=== PATIENT | female | born 1950 | race Caucasian/White ===

== ENCOUNTER 2018-03-12 15:28 | Outpatient (CLI) | payer MEDICARE | END 2018-03-12 15:29 | disposition home or self-care (01) | LOC: BICMAMMO 15:28 | PROVIDERS: ATTEND Family Medicine | DX: Z12.31 Encounter for screening mammogram for malignant neoplasm of breast (principal); Z80.3 Family history of malignant neoplasm of breast | CPT/HCPCS: 77063; 77067 ==

== ENCOUNTER 2018-07-02 14:49 | Outpatient (CLI) | payer MEDICARE ==
--- NOTE | 2018-07-02 15:35 | RAD ---
RIGHT SHOULDER THREE VIEWS: Indication: Diffuse right shoulder pain. Comparison: None. FINDINGS: There is advanced osteoarthrosis of the glenohumeral and AC joint. Visualized right ulna is clear. IMPRESSION: Glenohumeral AC joint osteoarthrosis. No acute osseous abnormality. POS: [facility]
== END 2018-07-02 14:50 | disposition home or self-care (01) ==
LOC: BICRAD 14:49
PROVIDERS: ATTEND Family Medicine
DX: G89.29 Other chronic pain (principal); M19.011 Primary osteoarthritis, right shoulder

== ENCOUNTER 2018-08-26 00:19 | Emergency (ER) | payer MEDICARE ==
[2018-08-26 01:15] LABS: #Eosinphils 0.2 thou/uL (0.0-0.7); #Monocytes 0.9 thou/uL (0.11-0.59); #Neutrophils 6.1 thou/uL (1.40-6.50); %Basophils 0.3 % (0.0-1.0); %Eosinophils 1.6 % (0.0-10.0); %Lymphocytes 29.4 % (21.0-51.0); %Monocytes 8.6 % (0.0-10.0); %Neutrophils 60.2 % (42.0-75.0); Hemoglobin 13.3 g/dL (12.0-16.0); Mean Corpuscular HGB CONC 33.6 g/dL (32.0-36.0); Mean Corpuscular Hemoglobin 32.4 pg (27.0-31.0); Mean Corpuscular Volume 96.5 fL (78.0-98.0); Platelet Count 196 thou/uL (130-400); RBC Distribution Width 12.7 % (11.5-14.5); Red Blood Cell (RBC) Count 4.11 mill/uL (4.20-5.40); White Blood Cell (WBC) Count 10.1 thou/uL (4.8-10.8)
[2018-08-26 01:37] LABS: ALT (SGPT) 37 U/L (8-55); AST (SGOT) 25 U/L (5-34); Albumin 4.4 g/dL (3.4-4.8); Alkaline Phosphatase 71 U/L (40-150); Anion Gap 14 mmol/L (10-20); BUN (Urea Nitrogen) 19 mg/dL (9.8-20.1); Bilirubin, Total 0.3 mg/dL (0.2-1.2); Calc. Creatinine Clearance 0 mL/min (70-130); Calcium 10.1 mg/dL (7.8-10.44); Carbon Dioxide 28 mmol/L (23-31); Chloride 103 mmol/L (98-107); Estimated GFR-MDRD 51; Globulin 3.9 g/dL (2.4-3.5); Glucose 114 mg/dL (80-115); Potassium 4.2 mmol/L (3.5-5.1); Protein, Total 8.3 g/dL (6.0-8.3); Sodium 141 mmol/L (136-145)
--- NOTE | 2018-08-26 08:08 | CT ---
PRELIMINARY REPORT/[facility]/EMERGENTY AFTER-HOURS PROCEDURE CT Head Without Contrast EXAM DATE/TIME: 08/26/2018 12:48 AM CLINICAL HISTORY: 67 years old, female; Signs and symptoms; Weakness, extremity; Left; Patient HX: Er wr; Tingling sens ation in left arm TECHNIQUE: Axial computed tomography images of the head/brain without contrast. COMPARISON: No relevant prior studies available. FINDINGS: Brain: Normal. Ventricles: Normal. Bones/joints: Normal. Sinuses: Normal as visualized. Mastoid air cells: Normal as visualized. Soft tissues: Unremarkable. IMPRESSION: No acute intracranial abnormality. Thank you for allowing us to participate in the care of your patient. Dictated and Authenticated by: Arie Hdez MD 08/26/2018 2:11 AM Central Time ([place] & [place]) FINAL REPORT EMERGENT AFTER HOURS CT BRAIN WITHOUT CONTRAST: FINDINGS/IMPRESSION: I agree with the findings and impression given in the preliminary report, per the [facility] physician. No evidence of acute intracranial abnormality.
== END 2018-08-26 03:08 | disposition home or self-care (01) ==
LOC: ERS 00:19
DX: M54.12 Radiculopathy, cervical region (principal); E78.5 Hyperlipidemia, unspecified; I10 Essential (primary) hypertension; Z86.73 Personal history of transient ischemic attack (TIA), and cerebral infarction without residual deficits; F32.9 Major depressive disorder, single episode, unspecified; Z79.899 Other long term (current) drug therapy
CPT/HCPCS: 36415; 70450; 80053; 85025

== ENCOUNTER 2019-03-15 09:35 | Outpatient (CLI) | payer MEDICARE ==
--- NOTE | 2019-03-15 11:11 | BD ---
BONE DENSITOMETRY: PROVIDED CLINICAL HISTORY: Postmenopausal screening. FINDINGS: Lumbar Spine: BMD (g/cm2) L1 0.993 T-Score: 0.0 L2 0.875 T-Score: -1.4 L3 0.999 T-Score: -0.8 L4 1.279 T-Score: 2.0 L1-L4 1.043 T-Score: 0.0 Femoral Neck: 0.703 T-Score: -1.3 Total Femur: 0.904 T-Score: -0.3 10-YEAR FRACTURE RISK:: Major osteoporotic fracture: 8.6%. Hip fracture: 0.8%. IMPRESSION: Calculated bone mineral density meets WHO criteria for osteopenia in the left femoral neck, placing t he patient at increased risk for fracture. Transcribed Date/Time: 03/15/2019 12:45 PM
--- NOTE | 2019-03-15 11:27 | MMO ---
Bilateral MAMMO Bilat Screen [facility]. CLINICAL HISTORY: Patient is 68 years old and is seen for screening. The patient has the following family history of breast cancer: sister. The patient has a history of Skin cancer. VIEWS: The views performed were: bilateral craniocaudal with tomosynthesis and bilateral mediolateral oblique with tomosynthesis. FILMS COMPARED: The present examination has been compared to prior imaging studies performed at [facility] on 11/22/2015, 01/28/2017 and 03/12/2018. This study has been interpreted with the assistance of computer-aided detection. MAMMOGRAM FINDINGS: There are scattered fibroglandular densities. There are no suspicious masses, suspicious calcifications, or new areas of architectural distortion. IMPRESSION: THERE IS NO MAMMOGRAPHIC EVIDENCE OF MALIGNANCY. A ROUTINE FOLLOW-UP MAMMOGRAM IN 1 YEAR IS RECOMMENDED. THE RESULTS OF THIS EXAM WERE SENT TO THE PATIENT. ACR BI-RADS Category 1 - Negative MAMMOGRAPHY NOTE: 1. A negative mammogram report should not delay a biopsy if a dominant of clinically suspicious mass is present. 2. Approximately 10% to 15% of breast cancers are not detected by mammography. 3. Adenosis and dense breasts may obscure an underlying neoplasm. Reported by: REMY BANERJEE MD Electonically Signed: [id number]
== END 2019-03-15 09:36 | disposition home or self-care (01) ==
LOC: BICMAMMO 09:35
PROVIDERS: ATTEND Family Medicine
DX: Z12.31 Encounter for screening mammogram for malignant neoplasm of breast (principal); Z78.0 Asymptomatic menopausal state; Z80.3 Family history of malignant neoplasm of breast; M85.852 Other specified disorders of bone density and structure, left thigh
CPT/HCPCS: 77063; 77067; 77080

== ENCOUNTER 2020-03-17 08:45 | Outpatient (CLI) | payer MEDICARE ==
--- NOTE | 2020-03-17 09:25 | MMO ---
Bilateral MAMMO Bilat Screen [facility]. CLINICAL HISTORY: Patient is 69 years old and is seen for screening. The patient has the following family history of breast cancer: sister. The patient has a history of Skin cancer. VIEWS: The views performed were: bilateral craniocaudal with tomosynthesis and bilateral mediolateral oblique with tomosynthesis. FILMS COMPARED: The present examination has been compared to prior imaging studies performed at [facility] on 11/22/2015, 01/28/2017, 03/12/2018 and 03/15/2019. This study has been interpreted with the assistance of computer-aided detection. MAMMOGRAM FINDINGS: There are scattered fibroglandular densities. There are benign appearing calcifications seen in both breasts. There are benign scattered densities in both breasts. There are no suspicious masses, suspicious calcifications, or new areas of architectural distortion. IMPRESSION: THERE IS NO MAMMOGRAPHIC EVIDENCE OF MALIGNANCY. A ROUTINE FOLLOW-UP MAMMOGRAM IN 1 YEAR IS RECOMMENDED. THE RESULTS OF THIS EXAM WERE SENT TO THE PATIENT. ACR BI-RADS Category 2 - Benign finding MAMMOGRAPHY NOTE: 1. A negative mammogram report should not delay a biopsy if a dominant of clinically suspicious mass is present. 2. Approximately 10% to 15% of breast cancers are not detected by mammography. 3. Adenosis and dense breasts may obscure an underlying neoplasm. Reported by: REMY BANERJEE MD Electonically Signed: [id number]
== END 2020-03-17 08:46 | disposition home or self-care (01) ==
LOC: BICMAMMO 08:45
PROVIDERS: ATTEND Family Medicine
DX: Z12.31 Encounter for screening mammogram for malignant neoplasm of breast (principal); Z80.3 Family history of malignant neoplasm of breast; Z85.828 Personal history of other malignant neoplasm of skin
CPT/HCPCS: 77063; 77067

== ENCOUNTER 2021-03-22 14:40 | Outpatient (CLI) | payer MEDICARE | END 2021-03-22 14:41 | disposition home or self-care (01) | LOC: BICMAMMO 14:40 | PROVIDERS: ATTEND Family Medicine | DX: Z12.31 Encounter for screening mammogram for malignant neoplasm of breast (principal); Z80.3 Family history of malignant neoplasm of breast; Z85.828 Personal history of other malignant neoplasm of skin | CPT/HCPCS: 77063; 77067 ==

== ENCOUNTER 2021-08-13 11:18 | Outpatient (CLI) | payer MEDICARE ==
[2021-08-13 13:06] LABS: Hemoglobin 12.9 g/dL (12.0-15.5); Mean Corpuscular HGB CONC 32.8 g/dL (32.0-36.0); Mean Corpuscular Hemoglobin 32.3 pg (27.0-33.0); Mean Corpuscular Volume 98.3 fl (81.6-98.3); Mean Platelet Volume 10.7 fl (7.4-10.4); Platelet Count 168 10x3/uL (150-450); White Blood Cell (WBC) Count 8.7 10x3/uL (3.5-10.5)
[2021-08-13 13:36] LABS: Anion Gap 17 mmol/L (10-20); BUN (Urea Nitrogen) 16 mg/dL (9.8-20.1); Calc. Creatinine Clearance 0 mL/min (70-130); Calcium 9.6 mg/dL (7.8-10.44); Carbon Dioxide 25 mmol/L (23-31); Chloride 109 mmol/L (98-107); Glucose 117 mg/dL (80-115); Potassium 4.4 mmol/L (3.5-5.1); Sodium 147 mmol/L (136-145)
[2021-08-13 23:37] LABS: SARS-CoV-2 PCR by NAA Not Detected (NotDetected)
== END 2021-08-13 11:19 | disposition home or self-care (01) ==
LOC: LABBT 11:18
PROVIDERS: ATTEND Specialist
DX: Z01.818 Encounter for other preprocedural examination (principal); L98.9 Disorder of the skin and subcutaneous tissue, unspecified; Z20.822 Contact with and (suspected) exposure to COVID-19
CPT/HCPCS: 80048; 85027; 93005; U0003; U0005; 93010

== ENCOUNTER 2023-07-30 14:11 | Outpatient (CLI) | payer MEDICARE, OTHER | END 2023-07-30 14:12 | disposition home or self-care (01) | LOC: BICMAMMO 14:11 | PROVIDERS: ATTEND Family Medicine | DX: Z12.31 Encounter for screening mammogram for malignant neoplasm of breast (principal); Z13.820 Encounter for screening for osteoporosis; M85.852 Other specified disorders of bone density and structure, left thigh; Z78.0 Asymptomatic menopausal state; Z80.3 Family history of malignant neoplasm of breast; Z85.828 Personal history of other malignant neoplasm of skin | CPT/HCPCS: 77063; 77067; 77080 ==

== ENCOUNTER 2023-08-02 20:44 | Inpatient (IN) | payer OTHER ==
[~2023-08-02 20:44] MED LIST: Iopamidol-370 76% 500 ML MDV (1 ML CHARGE) ONE
[2023-08-02] MEDS ORDERED: Metoclopramide HCl 10 MG (2 mL) VIAL ONE (21:44)
[2023-08-02] MEDS ORDERED: diphenhydrAMINE 50 MG/ML VIAL ONE (22:05)
[2023-08-02] MEDS ORDERED: methylPREDNISolone Sod Succ 40 MG VIAL ONE (22:05)
[2023-08-02] MEDS ORDERED: Famotidine/PF 20 mg/2ml Vial ONE (22:05)
[2023-08-02 22:12] LABS: #Eosinphils 0.1 thou/uL (0.0-0.7); #Monocytes 0.6 thou/uL (0.11-0.59); %Basophils 0.5 % (0.0-1.0); %Eosinophils 2.2 % (0.0-10.0); %Lymphocytes 39.3 % (21.0-51.0); %Monocytes 9.6 % (0.0-10.0); %Neutrophils 48.1 % (42.0-75.0); Hematocrit 37.6 % (36.0-47.0); Hemoglobin 12.9 g/dL (12.0-16.0); Mean Corpuscular HGB CONC 34.3 g/dL (32.0-36.0); Mean Corpuscular Hemoglobin 33.1 pg (27.0-31.0); Mean Corpuscular Volume 96.4 fl (78.0-98.0); Mean Platelet Volume 10.3 fL (7.4-10.4); Platelet Count 166 10x3/uL (130-400); RBC Distribution Width 13.1 % (11.5-14.5); White Blood Cell (WBC) Count 6.2 10x3/uL (4.8-10.8)
[2023-08-02 22:29] LABS: ALT (SGPT) 21 U/L (8-55); AST (SGOT) 23 U/L (5-34); Albumin 4.4 g/dL (3.4-4.8); Alkaline Phosphatase 62 U/L (40-110); Anion Gap 13 mmol/L (10-20); BUN (Urea Nitrogen) 12 mg/dL (9.8-20.1); Bilirubin, Total 0.5 mg/dL (0.2-1.2); Calc. Creatinine Clearance 0 mL/min (70-130); Calcium 9.6 mg/dL (7.8-10.44); Carbon Dioxide 25 mmol/L (23-31); Chloride 108 mmol/L (98-107); Estimated GFR 87; Globulin 3.1 g/dL (2.4-3.5); Glucose 102 mg/dL (80-115); Potassium 3.8 mmol/L (3.5-5.1); Protein, Total 7.5 g/dL (5.8-8.1); Sodium 142 mmol/L (136-145)
[2023-08-02] MEDS ORDERED: Magnesium 2 GM/50 ML BAG (IN WATER) ONE (22:50)
[2023-08-02] MEDS ORDERED: niCARdipine 25 MG/10 ML SDV ONE (23:12)
[2023-08-03] MEDS ORDERED: Ondansetron ODT 4 MG TAB PO PRN (01:02)
[2023-08-03] MEDS ORDERED: Ondansetron PF 4 MG/2 ML Vial IVP PRN (01:02)
[2023-08-03] MEDS ORDERED: niCARdipine 25 MG in Sodium Chloride 0.9% 250 ML 250 ML IVPB SCH (01:15)
[2023-08-03] MEDS ORDERED: Acetaminophen 500 MG TAB ONE (02:06)
[2023-08-03] MEDS: Valproate Sodium 1,000 MG in Sodium Chloride 0.9% 100 ML IVPB SCH (02:23)
[2023-08-03 05:13] LABS: Anion Gap 19 mmol/L (10-20); BUN (Urea Nitrogen) 11 mg/dL (9.8-20.1); Calc. Creatinine Clearance 78 mL/min (70-130); Carbon Dioxide 17 mmol/L (23-31); Chloride 107 mmol/L (98-107); Estimated GFR 80; Glucose 184 mg/dL (80-115); Potassium 3.9 mmol/L (3.5-5.1); Sodium 139 mmol/L (136-145)
[2023-08-03 05:19] LABS: Troponin I 0.021 ng/mL (< 0.028)
[2023-08-03 05:27] LABS: #Monocytes 0.1 thou/uL (0.11-0.59); #Neutrophils 4.8 thou/uL (1.40-6.50); %Basophils 0.3 % (0.0-1.0); %Eosinophils 0.2 % (0.0-10.0); %Lymphocytes 19.4 % (21.0-51.0); %Neutrophils 77.4 % (42.0-75.0); Hematocrit 42.5 % (36.0-47.0); Hemoglobin 14.5 g/dL (12.0-16.0); Mean Corpuscular HGB CONC 34.1 g/dL (32.0-36.0); Mean Corpuscular Hemoglobin 32.6 pg (27.0-31.0); Mean Corpuscular Volume 95.5 fl (78.0-98.0); Mean Platelet Volume 10.2 fL (7.4-10.4); Platelet Count 156 10x3/uL (130-400); Red Blood Cell (RBC) Count 4.45 mill/uL (4.20-5.40); White Blood Cell (WBC) Count 6.1 10x3/uL (4.8-10.8)
[2023-08-03] MEDS: chlorproMAZINE HCl 50 MG/2 ML AMP SLOW IVP SCH (05:59)
[2023-08-03] MEDS: rOPINIRole HCl 1 MG TAB PO SCH ×2 (07:02→20:15)
[2023-08-03] MEDS ORDERED: LORazepam 2 MG/ML SYR.(CARPUJECT) ONE ×2 (08:16→09:20)
[2023-08-03] MEDS: LORazepam 2 MG/ML SYR.(CARPUJECT) IVP SCH ×2 (08:30→09:30)
[2023-08-03] MEDS: Lorazepam 2 MG/ML VIAL SLOW IVP SCH (08:30)
[2023-08-03] MEDS ORDERED: Amlodipine 5 MG TAB ONE (09:18)
[2023-08-03] MEDS ORDERED: Lisinopril 20 MG TAB ONE (09:19)
[2023-08-03] MEDS ORDERED: Morphine 4 MG/ML VIAL ONE (09:19)
[2023-08-03] MEDS ORDERED: Clopidogrel Bisulfate 75 MG TAB ONE (09:19)
[2023-08-03] MEDS ORDERED: Famotidine 20 MG TAB ONE (09:20)
[2023-08-03] MEDS: Morphine 2 MG/ML VIAL SLOW IVP SCH (09:30)
[2023-08-03] MEDS: Famotidine/PF 20 mg/2ml Vial SLOW IVP SCH (09:35)
[2023-08-03] MEDS: Lisinopril 20 MG TAB PO SCH (09:35)
[2023-08-03] MEDS: Clopidogrel Bisulfate 75 MG TAB PO SCH (09:35)
[2023-08-03] MEDS: Amlodipine 5 MG TAB PO SCH ×2 (09:35→20:14)
[2023-08-03] MEDS: Citalopram 20 MG TAB PO SCH (09:35)
[2023-08-03] MEDS: Famotidine 20 MG TAB PO SCH (09:35)
[2023-08-03] MEDS: Hydrochlorothiazide 25 MG TAB PO SCH (11:11)
[2023-08-03] MEDS: Rosuvastatin 20 MG TAB PO SCH (11:11)
[2023-08-03 13:16] LABS: Troponin I 0.025 ng/mL (< 0.028)
[2023-08-03 13:57] LABS: Troponin I 0.032 ng/mL (< 0.028)
[2023-08-04 14:06] LABS: Free T4 (Free Thyroxine) 0.94 ng/dL (0.70-1.48); Thyroid Stimulating Hormone 0.5127 uIU/mL (0.35-4.94)
[2023-08-04] MEDS: hydrALAZINE 20 MG/ML VIAL SLOW IVP PRN (17:43)
[2023-08-04] MEDS: Acetaminophen 325 MG TAB PO PRN (19:24)
[2023-08-05 06:00] VITALS: BMI 26.1
[2023-08-05 06:25] LABS: #Eosinphils 0.1 thou/uL (0.0-0.7); #Monocytes 0.5 thou/uL (0.11-0.59); #Neutrophils 5.1 thou/uL (1.40-6.50); %Basophils 0.5 % (0.0-1.0); %Eosinophils 1.4 % (0.0-10.0); %Lymphocytes 32.8 % (21.0-51.0); %Monocytes 6.2 % (0.0-10.0); Hematocrit 43.3 % (36.0-47.0); Hemoglobin 14.4 g/dL (12.0-16.0); Mean Corpuscular HGB CONC 33.3 g/dL (32.0-36.0); Mean Corpuscular Volume 99.3 fl (78.0-98.0); Mean Platelet Volume 9.9 fL (7.4-10.4); Platelet Count 228 10x3/uL (130-400); RBC Distribution Width 13.4 % (11.5-14.5); Red Blood Cell (RBC) Count 4.36 mill/uL (4.20-5.40); White Blood Cell (WBC) Count 8.6 10x3/uL (4.8-10.8)
[2023-08-05 06:51] LABS: Anion Gap 12 mmol/L (10-20); BUN (Urea Nitrogen) 14 mg/dL (9.8-20.1); Calc. Creatinine Clearance 74 mL/min (70-130); Calcium 9.9 mg/dL (7.8-10.44); Carbon Dioxide 28 mmol/L (23-31); Chloride 106 mmol/L (98-107); Estimated GFR 77; Glucose 128 mg/dL (80-115); Potassium 4.9 mmol/L (3.5-5.1); Sodium 141 mmol/L (136-145)
[2023-08-05] MEDS: Carvedilol 6.25 MG TAB PO SCH (10:01)
[2023-08-05 12:18] VITALS: BP 176/73; TEMP 98.3
[2023-08-05] MEDS ORDERED: Carvedilol 6.25 MG TAB PO SCH (17:00)
== END 2023-08-05 17:36 | disposition home or self-care (01) | DRG 281 ==
LOC: ERS 20:44 → ERHOLD 08-03 02:01 → 2SW 08-03 13:57
PROVIDERS: ADMIT Student in an Organized Health Care Education/Training Program; ATTEND Internal Medicine
DX: I16.1 Hypertensive emergency (principal); I21.A1 Myocardial infarction type 2; E87.1 Hypo-osmolality and hyponatremia; E78.5 Hyperlipidemia, unspecified; G25.81 Restless legs syndrome; E04.1 Nontoxic single thyroid nodule; Z79.02 Long term (current) use of antithrombotics/antiplatelets; Z79.891 Long term (current) use of opiate analgesic; Z79.899 Other long term (current) drug therapy; Z86.73 Personal history of transient ischemic attack (TIA), and cerebral infarction without residual deficits
CPT/HCPCS: 36415; 70450; 70496; 70498; 76770; 80048; 80053; 82533; 83735; 84439; 84443; 84481; 84484; 85025; 86140; 93005; 93975; 96365; 96366; 96367; 96368; 96375; J0360; J1200; J2060; J2270; J2272; J2765; J2920; J3230; J3475; J3490; Q9967; S0028

== ENCOUNTER 2023-08-13 15:08 | Outpatient (CLI) | payer OTHER | END 2023-08-13 15:09 | disposition home or self-care (01) | LOC: BICULT 15:08 | PROVIDERS: ATTEND Family Medicine | DX: E04.2 Nontoxic multinodular goiter (principal) | CPT/HCPCS: 76536 ==